=== PATIENT | male | born 1975 | race Caucasian/White ===

== ENCOUNTER 2018-04-04 00:54 | Emergency (ER) | payer OTHER, SELFPAY ==
[2018-04-04] MEDS ORDERED: BUPIVACAINE 0.5% PF 10 ML VIAL ONE (01:25)
[2018-04-04] MEDS ORDERED: LIDOCAINE 1% MPF 5 ML VIAL ONE (01:25)
[2018-04-04] MEDS ORDERED: TETANUS & DIPHTHERIA TOX,ADULT 0.5 ML VIAL ONE (01:25)
[2018-04-04] MEDS ORDERED: AMOX TR/K CLAV 400MG CHEW TAB PO ONE (03:02)
[2018-04-04] MEDS ORDERED: AMOX/K CLAV 875 MG TAB ONE (03:05)
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
[2018-04-04] MEDS ORDERED: KETOROLAC 30 MG/ML INJ ONE (03:13)
--- NOTE | 2018-04-04 11:29 | RAD REPORT ---
EXAM DESCRIPTION: RAD - Lumbar Spine 3 Views - 04/04/2018 2:26 am CLINICAL HISTORY: LOWER BACK PAIN Radiculopathy COMPARISON: No comparisons FINDINGS: Vertebral body heights appear maintained. No compression fracture noted. Mild disc thinnin g is present at L4-5 and L5-S1. No spondylolysis or spondylolisthesis. IMPRESSION: Mild lower lumbar spondylosis.
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
--- NOTE | 2018-04-04 11:35 | RAD REPORT ---
EXAM DESCRIPTION: CT - CTFB CLINICAL HISTORY: Facial pain;Swelling;Trauma COMPARISON: No comparisons TECHNIQUE: Axial 2 mm thick images of the face were obtained with sagittal and coronal reconstructio n images. All CT scans are performed using dose optimization technique as appropriate and may include automated exposure control or mA/KV adjustment according to patient size. FINDINGS: No acute facial bone fracture is seen.The mandible is intact. Significant soft tissue edema, air and swelling in the left premaxillary and malar regions. Skin lace ration likely present. The globes and orbital contents are grossly unremarkable.The paranasal sinuses and mastoids are clear . IMPRESSION: Negative for facial bone fracture.
== END 2018-04-04 03:28 | disposition home or self-care (01) ==
LOC: ER 00:54
PROC: 0JQ10ZZ Repair Face Subcutaneous Tissue and Fascia, Open Approach (ICD-10-PCS; principal; 2018-04-04)
DX: S01.412A Laceration without foreign body of left cheek and temporomandibular area, initial encounter (principal); S00.83XA Contusion of other part of head, initial encounter; Y04.2XXA Assault by strike against or bumped into by another person, initial encounter; Y93.89 Activity, other specified; Y92.009 Unspecified place in unspecified non-institutional (private) residence as the place of occurrence of the external cause; Z23 Encounter for immunization; F17.210 Nicotine dependence, cigarettes, uncomplicated
CPT/HCPCS: 70450; 70486; 72100; 72125; 76377; 90714; 96372; 99284